=== PATIENT | male | born 1985 | race Two or more races ===

== ENCOUNTER 2024-01-06 19:39 | Emergency (ER) | payer BC ==
[~2024-01-06] VITALS: Ht 185.4 cm; Wt 86.2 kg
[2024-01-06] MEDS ORDERED: KETOROLAC TROMETHAMINE 60 MG VIAL IM ONE (22:15)
[2024-01-06] MEDS ORDERED: ORPHENADRINE CITRATE 30 MG/ML AMPUL IM ONE (22:15)
== END 2024-01-06 22:34 | disposition home or self-care (01) ==
LOC: ER 19:39
DX: M54.50 Low back pain, unspecified (principal)